=== PATIENT | male | born 1975 | race Caucasian/White ===

== ENCOUNTER 2017-02-16 12:54 | Outpatient (CLI) | payer BC, OTHER | END 2017-02-16 12:55 | disposition home or self-care (01) | DX: R22.2 Localized swelling, mass and lump, trunk (principal) ==

== ENCOUNTER 2017-07-28 08:49 | Day surgery (SDC) | payer BC, OTHER ==
[~2017-07-28 08:49] MED LIST: ceFAZolin 2 GM/50 ML 2 GM/50 ML BAG IV ONE
[2017-07-28] MEDS ORDERED: LACTATED RINGERS 1,000 ML IV ONE ×3 (09:23→15:48)
[2017-07-28] MEDS ORDERED: BUPIVACAINE 0.5% PF 30 ML VIAL INFIL ONE (11:53)
[2017-07-28] MEDS ORDERED: KETOROLAC 30 MG/ML VIAL IVP ONE (12:30)
[2017-07-28] MEDS ORDERED: fentaNYL 100 MCG/2 ML VIAL IVP ONE (12:30)
[2017-07-28] MEDS ORDERED: ceFAZolin 2 GM/50 ML 2 GM/50 ML BAG IV ONE (12:30)
[2017-07-28] MEDS ORDERED: LIDOCAINE-MPF 2% 5 ML VIAL IM ONE (12:30)
[2017-07-28] MEDS ORDERED: PROPOFOL 200 MG/20 ML VIAL IVP ONE (12:30)
[2017-07-28] MEDS ORDERED: ONDANSETRON 4 MG/2 ML VIAL IVP ONE (12:30)
[2017-07-28] MEDS ORDERED: DEXAMETHASONE 4 MG/ML VIAL IVP ONE (12:30)
[2017-07-28] MEDS ORDERED: METOCLOPRAMIDE 10 MG/2 ML VIAL IVP ONE (12:30)
[2017-07-28] MEDS: HYDROmorphone 1 MG/ML AMP ONE ×4 (14:02→14:27)
--- NOTE | 2017-07-28 14:50 | OPERATIVE REPORT ---
Operative Report - General Planned Procedure: RIGHT TEP inguinal herniorrhaphy Pre-Op Diagnosis: RIGHT inguinal hernia Procedure Performed: BILATERAL TEP inguinal herniorrhaphy Post Op Diagnosis: BILATERAL TEP inguinal herniorrhaphy - Procedure Note Primary Surgeon: Harley Varma MD Anesthesia Provider: Vijay Osborne MD/Yonatan Mederos Anesthesia Technique: General ET tube, Local (30 mL of 1/2% marcaine) IV Fluids (mL): 800 Estimated Blood Loss (mL): 25 Complications: None. - Other Other Information/Narrative: OPERATIVE DESCRIPTION/REPORT: After verbal and written informed consent was obtained detailing the risks of infection, bleeding requiring transfusion with its risks, nerve injury, and , and after I met with the patient confirming the surgery and the site of the surgery, the patient was brought to the operative suite and placed supine on the operating table. Great care was taken to avoid pressure points to prevent pressure necrosis or nerve injury. Monitoring devices were applied along with TEDs and pneumatic compressive stockings (to prevent DVT). The patient received preoperative antibiotics for surgical prophylaxis. Dr. Vijay Osborne and aric Mederos sedated and induced general anesthesia and provided anesthesia care for the entirety of the case (Vijay started, Yonatan completed). The patient was prepped and draped in the usual sterile manner. With the patient draped my initials were clearly visible. A "time in" then confirmed that the patient was identified with 3 identifiers (name, date and medical record number), the history and physical was in the chart, the signed consent confirming the procedure was in the chart, the patient was in the correct position, the aforementioned prophylactic measures were in place or given, we had the correct personnel and equipment to complete the procedure and that anesthesia, surgery and nursing were given an opportunity to express any concerns. With the agreement of everyone in the room, we proceeded with the operation. A transverse skin incision was made below and to the right of the umbilicus to a length of approximately 3 cm. The incision was carried through the subcutaneous tissue. Bleeders were cauterized. The right rectus sheath was identified and incised lateral to the midline. The preperitoneal space was then developed following insertion of a Spacemaker balloon, which was inflated under direct vision. The balloon would not inflate fully on the right hand side and in order to get the right side of the balloon to inflate additional pressure was used to the point where the balloon popped but it still did not dissect the right hand side. Following removal of the Spacemaker balloon, a #10 trocar was placed in the preperitoneal space and the preperitoneal space was insufflated with CO2 to a steady state pressure of 15 mmHg. A 5 mm 30 degree laparoscope was inserted in the preperitoneal space. Two #5 trocars were placed in the lower midline 5 cm and 10 cm away from the umbilical incision under direct vision and without incident. Landmarks including symphysis pubis, right and left Grant ligaments and right and left inferior epigastric vessels were identified. Dissection was then continued lateral to the transverse abdominis muscle bilaterally. The right side was addressed first. The internal ring was then explored for the presence of the indirect hernia sac and despite extensive dissection no indirect hernia was found. Exploration of the medial space showed a medial defect consistent with a direct hernia. The inferior epigastric vessel was "hanging down" and would impede good placement of the mesh and thus was ligated with serial application of the Ligaure. A large size Bard 3D mesh (Lot # [id number], reference #[id number], use by date 2021-12-09) was placed in the preperitoneal space and anchored to the symphysis pubis with a SorbaFix tacker ( Lot #[id number], reference #[id number], use by date 2019-01-06). The mesh covered the internal ring as well as the direct inguinal hernia. Great care was taken to ensure that the peritoneum was swept down so that it could not "creep" behind the mesh and result in a recurrent hernia. The left side was then addressed. Again there was the presence of a direct inguinal hernia and no indirect inguinal hernia. This side repiared in exactly the same was as the right hand side with the two notable differences being that the inferior epigastric vessel did not need to be sacrificed on this side and the mesh used was a large size Bard 3D mesh (Lot #[id number], reference #[id number], use by date 2022-04-08) 20 mL of 1/2% Marcaine was injected into the preperitoneal space and then remaining 10 mL at all three incisions. The preperitoneal space was then deflated and during the deflation the mesh was watched to ensure that it was sandwiched nicely in place and did not change position. All trocars were withdrawn. The defect in the rectus sheath was closed with two simple 0 Vicryl sutures and a [id number] 0 Vicryl suture. The skin incisions were closed with subcuticular 4-0 Monocryl suture. The prep was washed off and Mastisol and Steristrips were applied at all the incisions. At this point a time out was performed that confirmed that all the counts were correct, the procedure that was performed, the blood loss, the IV fluids administered, and the patients condition. The patient's scrotum was evaluated to ensure that the testicles were well seated within the scrotum and that there was no swelling. The prep was washed off and Benzoin and Steristrips were applied. Having tolerated the procedure well, the patient was subsequently extubated and taken to recovery room in good and stable condition.
[2017-07-28] MEDS ORDERED: HYDROcod/ACETAM 10 MG/325 MG TABLET ONE ×2 (15:22→16:22)
[2017-07-28 17:05] VITALS: BP 126/80
== END 2017-07-28 08:50 | disposition home or self-care (01) ==
LOC: SDS 08:49
PROVIDERS: ATTEND Surgery
PROC: 0YUA0JZ Supplement Bilateral Inguinal Region with Synthetic Substitute, Open Approach (ICD-10-PCS; principal; 2017-07-28 10:00)
DX: K40.20 Bilateral inguinal hernia, without obstruction or gangrene, not specified as recurrent (principal); F17.290 Nicotine dependence, other tobacco product, uncomplicated
CPT/HCPCS: 49505; A9270; C1781; J0690; J1170; J7120

== ENCOUNTER 2020-12-12 19:01 | Emergency (ER) | payer BC, OTHER ==
[2020-12-12 19:33] VITALS: BP 134/83
[2020-12-12 19:54] LABS: BILIRUBIN,URINE NEGATIVE (NEGATIVE); GLUCOSE, URINE (UA) NEGATIVE (NEGATIVE); KETONES,URINE (UA) NEGATIVE (NEGATIVE); LEUKOCYTE ESTERASE, URINE NEGATIVE (NEGATIVE); NITRITE,URINE NEGATIVE (NEGATIVE); OCCULT BLOOD,URINE NEGATIVE (NEGATIVE); PH,URINE 5.5 PH (5.0-7.5); PROTEIN,URINE NEGATIVE (NEGATIVE); UROBILINOGEN,URINE 0.2 (NORMAL) E.U./dL (NORMAL)
[2020-12-12 19:55] LABS: CLARITY,URINE CLEAR (CLEAR)
--- NOTE | 2020-12-12 21:31 | ED Physician Documentation ---
History of Present Illness - Stated complaint Stated Complaint: MALE - Chief complaint Chief Complaint: Abd Pain - Additonal information Additional information: 45-year-old male presents to the emergency department for evaluation of left testicular/scrotal discomfort that began about 10 days ago. He often notices most of the discomfort when sitting. He denies any scrotal swelling. He has had no fevers dysuria urgency or frequency. He no history of previous sexually transmitted infection. He is sexually monogamous with his . Denies penetrative rectal sex. Patient does report that he has had sex which she finds somewhat uncomfortable due to the pain. He denies painful ejaculate or bloody ejaculate. Review of Systems Constitutional: reports: Reviewed and negative Eyes: reports: Reviewed and negative Ears: reports: Reviewed and negative Nose: reports: Reviewed and negative Throat: reports: Reviewed and negative Cardiac: reports: Reviewed and negative Respiratory: reports: Reviewed and negative GI: reports: Reviewed and negative : reports: Testicular pain. denies: Dysuria, Hematuria, Testicular mass Skin: reports: Rash Musculoskeletal: reports: Reviewed and negative PD PAST MEDICAL HISTORY - Past Medical History Cardiovascular: None Respiratory: None Endocrine/Autoimmune: None GI: None : None HEENT: Chronic vision loss Psych: None Musculoskeletal: None Derm: Eczema - Past Surgical History Past Surgical History: Yes - Present Medications Home Medications: Ambulatory Orders Medication Instructions Recorded Confirmed HYDROcod/ACETAM 5/325 [[place] 5/325] 1 each PO BID PRN #5 tablet 12/12/20 Ibuprofen [Motrin] 600 mg PO Q6H PRN #30 tab 12/12/20 - Allergies Allergies/Adverse Reactions: Allergies Allergy/AdvReac Type Severity Reaction Status Date / Time mefloquine Allergy Intermediate Hallucinati Verified 12/12/20 19:33 ons - Social History Does the pt smoke?: No Smoking Status: Never smoker Does the pt drink ETOH?: Yes Does the pt have substance abuse?: No PD ED PE EXPANDED - General General: Alert, No acute distress - Abdomen Abdomen: Normal Bowel sounds. No: Tender to palpation - Male Male : Circumcised, Testes descended mimi, Normal lie/cremastaric, Tenderness (Palpable boggy swelling that feels cordlike on the posterior side of the left scrotum. Normal lie no swelling no erythema. No sores or lesions. No inguinal lymphadenopathy.). No: Testicular Mass Results - Vitals Vitals: Vital Signs - 24 hr 12/12/20 12/12/20 19:25 19:51 Temperature 36.3 C L Heart Rate 67 Respiratory 16 Rate Blood Pressure 134/83 H 134/83 H O2 Saturation 99 Oxygen O2 Source Room air - Labs Labs: Laboratory Tests 12/12/20 12/12/20 18:30 19:44 Urine Color Cancelled YELLOW Urine Clarity Cancelled CLEAR Urine pH Cancelled 5.5 Ur Specific [place] Cancelled 1.020 Urine Protein Cancelled NEGATIVE Urine Glucose (UA) Cancelled NEGATIVE Urine Ketones Cancelled NEGATIVE Urine Occult Blood Cancelled NEGATIVE Urine Nitrite Cancelled NEGATIVE Urine Bilirubin Cancelled NEGATIVE Urine Ictotest Cancelled Urine Urobilinogen Cancelled 0.2 (NORMAL) Ur Leukocyte Esterase Cancelled NEGATIVE Urine RBC Cancelled Urine WBC Cancelled Urine WBC Clumps Cancelled Ur Epithelial Cells Cancelled Ur Squamous Epith Cells Cancelled Urine Crystals Cancelled Amorphous Sediment Cancelled Urine Bacteria Cancelled Urine Casts Cancelled Urine Starch Cancelled Urine Mucus Cancelled Urine Trichomonas Cancelled Urine Yeast Cancelled Urine Sperm Cancelled Ur Oval Fat Bodies Cancelled Ur Microscopic Review NOT INDICATED Urine Culture Comments Cancelled NOT INDICATED - Rads (name of study) scrotal US Radiology: See rad report, Other (Small right epididymal cyst. Bilateral small varicoceles.) PD MEDICAL DECISION MAKING - ED course Complexity details: reviewed results, re-evaluated patient, considered differential, d/w patient ED course: 45-year-old male presents the emergency department for evaluation of 10 days left scrotal pain. He denies any fevers no history of STI. Urine shows no signs of infection. GC screening is pending. On exam history does not suggest torsion. We did do a scrotal ultrasound which confirms flow to both testes. He does have a very small incidental finding of a right epididymal cyst. There are also small bilateral varicoceles. I discussed this finding with the patient. He will be discharged with a limited prescription for [place] 5 tablets, as well as ibuprofen. Will request that he schedule with urology in follow-up. Advised that he may need to see his PCP for further evaluation. Departure - Departure Disposition: 01 Home, Self Care Clinical Impression: Bilateral varicoceles, Left testicular pain Condition: Stable Record reviewed to determine appropriate education?: Yes Instructions: Varicocele Tx, Varicocele Follow-Up: Yohan Carmona MD [Provider Admit Priv/Credential] - Prescriptions: Ibuprofen [Motrin] 600 mg PO Q6H PRN #30 tab PRN Reason: Pain HYDROcod/ACETAM 5/325 [[place] 5/325] 1 each PO BID PRN #5 tablet PRN Reason: Pain Comments: Ryan barnett were seen today for left testicular pain. Your urine showed no signs of infection. The ultrasound showed small bilateral varicoceles. As we discussed these are engorged blood vessels that typically are on the bottom of the scrotum. Pain relief is typically achieved through use of NSAID medication like ibuprofen. You may also find support by wearing good supporting underwear as well as using a limited amount of ice to help with inflammation. I have prescribed a very small amount of hydrocodone for severe pain only. In most instances variceals will dissipate on their own. However in some cases they do not and you may need to be seen by a urologist. I have given you the name of a urologist that you may call to arrange follow-up with. However insurance may require a referral from your primary doctor. Please discuss this ED visit with her as soon as possible. Return to the emergency department if you have swelling of the scrotum or testes, fevers, discharge from your penis, suddenly severe or different pain.
--- NOTE | 2020-12-12 22:05 | Ultrasound Report ---
PROCEDURE: Testicle w/Doppler INDICATIONS: left testicular pain TECHNIQUE: Real-time scanning was performed of the scrotum and testicles, with image documentation. Color and p ulse Doppler interrogation was performed of both testicles. COMPARISON: None. FINDINGS: Right: Testicle is normal in size at 5.0 x 2.5 x 2.9 cm, and homogenous in echotexture. Epididymis is normal in overall size and morphology. No significant hydrocele or varicoceles. Overlying scrota l skin is normal in thickness. Note is made of a small right epididymal cyst measuring 3 x 4 x 4 mm. Left: Testicle is normal in size at 4.7 x 2.1 x 3.2 cm, and homogeneous in echotexture. Epididymis is normal in overall size and morphology. No significant hydrocele or varicoceles. Overlying scrota l skin is normal in thickness. Doppler: Color and pulse Doppler demonstrate normal and symmetric arterial flow in both testicles. IMPRESSION: Patient is on the left. There is no evidence of testicular torsion either recent or chronic bilateral ly. Very small bilateral hydroceles are incidentally noted, additionally, small varicoceles can be se en associated with each hemiscrotum, of doubtful clinical significance given small size. Overall a de finite source of asymmetric left-sided predominant testicular pain is not seen. No testicular mass or inflammation is suspected. Reviewed by: Mehrdad Magaña MD on 12/12/2020 10:04 PM PST Approved by: Mehrdad Magaña MD on 12/12/2020 10:04 PM PST Station ID: [id number]
== END 2020-12-12 21:58 | disposition home or self-care (01) ==
LOC: ED 19:01
DX: I86.1 Scrotal varices (principal)
CPT/HCPCS: 81001; 81003; 87086; 93975; 99283; 99284

== ENCOUNTER 2022-02-03 17:38 | Outpatient (CLI) | payer BC ==
--- NOTE | 2022-02-04 15:34 | XRAY Report ---
PROCEDURE: Ribs 2 View LT INDICATIONS: CONTUSION OF L FRONT WALL OF THORAX TECHNIQUE: 3 views of the left ribs were acquired. COMPARISON: None FINDINGS: Surgical changes and devices: None. Bones and chest wall: No fractures or dislocations. Specifically, no displaced, acute rib fractures seen. No suspicious bony lesions. Oval sclerotic focus likely representing a bone island seen in th e left humeral head. Overlying soft tissues appear unremarkable. Lungs and pleura: The visualized lung appears clear. No pleural effusions or pneumothorax are visib le. IMPRESSION: No acute, displaced left-sided rib fractures visualized. Reviewed by: Mike Pereyra MD on 02/04/2022 3:33 PM PDT Approved by: Mike Pereyra MD on 02/04/2022 3:33 PM PDT Station ID: [id number]
== END 2022-02-03 23:59 | disposition home or self-care (01) ==
LOC: DI.N 17:38
PROVIDERS: ATTEND Physician Assistant Medical
DX: S20.212A Contusion of left front wall of thorax, initial encounter (principal)